=== PATIENT | female | born 1965 | race Caucasian/White ===

== ENCOUNTER 2016-05-14 22:24 | Emergency (ER) | payer MEDICAID ==
--- NOTE | ~2016-05-14 | ER ---
PATIENT'S NAME: YUNIOR BRAVO [facility] AGE: 50 Y [address] ROOM: [place] [address] LOCATION: ED ADMIT DATE: 05/14/2016 ER/Outpatient Report DISCHARGE DATE: 05/14/2016 FAMILY PHYSICIAN: Gabriel Eaton MD ATTENDING PHYSICIAN: Roberto Chavez Time Seen: 2238 hours. CHIEF COMPLAINT: Low back pain. HISTORY OF PRESENT ILLNESS: The patient is a 50-year-old female with history of insulin-dependent diabetes. She said she was moving some furniture over the weekend and now has developed some low back pain. The pain is worse with movement. She denies fever or chills. No urinary symptoms. The patient states that she checked her sugars earlier today which were normal for her. CURRENT MEDICATIONS: See her copied list. ALLERGIES: SEE COPIED LIST. MEDICAL HISTORY: Includes irritable bowel syndrome, insulin-dependent diabetes, chronic excessive weight, history of blood clots, acid reflux. SURGERIES: Include cholecystectomy, hysterectomy. SOCIAL HISTORY: She is . Nonsmoker, no alcohol. REVIEW OF SYSTEMS: GENERAL: Denies fevers or chills. HEAD/ENT: No recent headache, sore throat. RESPIRATORY: Denies cough, wheezing. CARDIOVASCULAR: Negative. GASTROINTESTINAL: Has had no vomiting, no nausea, no diarrhea. GENITOURINARY: No burning, frequency, urgency. MUSCULOSKELETAL: Includes bilateral low back pain. The pain is increased with movement. NEURO: Denies numbness or tingling to extremities. PATIENT'S NAME: YUNIOR BRAVO [facility] AGE: 50 Y [address] ROOM: [place] [address] LOCATION: [facility] ADMIT DATE: 05/14/2016 ER/Outpatient Report DISCHARGE DATE: 05/14/2016 FAMILY PHYSICIAN: Gabriel Eaton MD ATTENDING PHYSICIAN: Roberto Chavez OBJECTIVE FINDINGS: VITAL SIGNS: Temperature is 98.6, respiratory rate 22, pulse 94, blood pressure 158/69, O2 sats 99%. GENERAL APPEARANCE: White female. She is excessively overweight, but alert and oriented. HEAD/EENT: Sclerae were clear. Oral membranes were moist. LUNGS: Clear bilaterally. There was no tachypnea. HEART: Tones distant and regular. ABDOMEN: Obese, nontender. BACK AND EXTREMITIES: Some tenderness across to her low back. Her movements were fairly normal. LABORATORY DATA AND X-RAYS: Urine showed no significant signs of any infection. She had positive glucose. ASSESSMENT: 1. Low back pain, probable musculoskeletal in nature from increased activity. 2. Insulin-dependent diabetes. 3. Chronic obesity. PLAN: Recommend some use of ice or heat. Continue Tylenol. Advised to monitor her sugars at home. Follow up with Dr. Eaton if she does not improve. MARCELINO BRIGGS FOR MD JOVAN BAUTISTA/som /[id number] d: 05/15/162 t: 05/21/16 1212, OUTPATIENT REPORT
[2016-05-14 23:08] LABS: BILIRUBIN URINE NEGATIVE (NEGATIVE); BLOOD URINE NEGATIVE /UL (NEGATIVE); COLOR URINE YELLOW (YELLOW); GLUCOSE URINE 100 mg/dL (NEGATIVE); KETONE URINE 5 mg/dL (NEGATIVE); LEUKOCYTES URINE NEGATIVE /UL (NEGATIVE); NITRITE URINE NEGATIVE (NEGATIVE); PROTEIN URINE NEGATIVE (NEGATIVE); TURBIDITY URINE CLEAR (CLEAR); UROBILINOGEN URINE 4 mg/dL (NORMAL)
== END 2016-05-14 23:58 | disposition disaster alternative care site (69) ==
LOC: GMED 22:24
PROVIDERS: Physician Assistant Medical
DX: M54.5 Low back pain (principal); E11.9 Type 2 diabetes mellitus without complications; E66.9 Obesity, unspecified; K21.9 Gastro-esophageal reflux disease without esophagitis; Z90.710 Acquired absence of both cervix and uterus

== ENCOUNTER 2016-05-22 21:35 | Emergency (ER) | payer MEDICAID ==
--- NOTE | ~2016-05-22 | ER ---
PATIENT'S NAME: UYNIOR BRAVO [facility] AGE: 50 Y [address] ROOM: [place] [address] LOCATION: [facility] ADMIT DATE: 05/22/2016 ER/Outpatient Report DISCHARGE DATE: 05/22/2016 FAMILY PHYSICIAN: Gabriel Eaton MD ATTENDING PHYSICIAN: Tamara Crowe TIME OF ARRIVAL: 2133 hours. TIME OF EXAM: 2144 hours. CHIEF COMPLAINT: Abdominal pain and neck pain. HISTORY OF PRESENT ILLNESS: The patient states approximately 1 hour prior to arrival she tripped over something in her living room she is not quite sure what it was. She states she never actually fell, she just twisted and caught herself, she is having pain in the right upper quadrant, it kind of radiates up the whole side, she is having pain in the right-side of her neck, she states she sat down for awhile to see if the pain would calm down. She is nauseated, but has not vomited. Denies any numbness or tingling of her extremities. She has not taken anything at home for the discomfort. ALLERGIES: ALLERGIES ARE ON HER CHART AND REVIEWED BY ME. SHE HAS MULTIPLE ALLERGIES. CURRENT MEDICATIONS: Current medications are on her chart and reviewed by me. PAST MEDICAL HISTORY: Insulin-dependent diabetes, GERD, IBS, and history of blood clots. PAST SURGICAL HISTORY: Hysterectomy, cholecystectomy, and bowel tuck. SOCIAL HISTORY: She denies use of tobacco, drugs, or alcohol. REVIEW OF SYSTEMS: All negative other than those mentioned in the HPI. PHYSICAL EXAMINATION: VITAL SIGNS: She weighed 176.7 kg. Blood pressure is 170/106, pulse of 96, PATIENT'S NAME: YUNIOR BRAVO [facility] AGE: 50 Y [address] ROOM: [place], [place] [address] LOCATION: [facility] ADMIT DATE: 05/22/2016 ER/Outpatient Report DISCHARGE DATE: 05/22/2016 FAMILY PHYSICIAN: Gabriel Eaton MD ATTENDING PHYSICIAN: Tamara Crowe respirations 16, temp of 98.9, and O2 sat was 98% on room air. GENERAL: She is awake, alert, and oriented x4. SKIN: [place], warm, and dry. RESPIRATIONS: Even and nonlabored. Lung sounds are clear throughout. HEART: Regular rate and rhythm. ABDOMEN: Soft and nondistended. Bowel sounds are present. EXTREMITIES: She moves all extremities strongly and equally. NECK: No deformity of the neck is noted. EMERGENCY DEPARTMENT COURSE: X-ray was completed. No acute bony abnormality is seen. The patient was given acetaminophen 1000 mg p.o. Blood pressure did come down to 160/85, pulse of 92, and respirations 16. IMPRESSION: Strain of the abdomen muscles and neck. PLAN: Home, rest, ice or heat to the neck and abdominal area. Tylenol every 6 hours as needed for discomfort. If symptoms persist or worsen, she should follow up with Dr. Eaton. She verbalized understanding. NINI AYALA APRN FOR MD ÁNGEL MOLINA/som /[id number] d: 05/23/16 0425 t: 05/25/16 1815, OUTPATIENT REPORT
== END 2016-05-22 22:38 | disposition disaster alternative care site (69) ==
LOC: GACC 21:35
DX: S39.011A Strain of muscle, fascia and tendon of abdomen, initial encounter (principal); S16.1XXA Strain of muscle, fascia and tendon at neck level, initial encounter; E11.9 Type 2 diabetes mellitus without complications; K21.9 Gastro-esophageal reflux disease without esophagitis; Z90.49 Acquired absence of other specified parts of digestive tract; Z79.01 Long term (current) use of anticoagulants; Z79.899 Other long term (current) drug therapy; Z79.4 Long term (current) use of insulin; Z88.0 Allergy status to penicillin; Z88.5 Allergy status to narcotic agent; Z88.2 Allergy status to sulfonamides; Z88.1 Allergy status to other antibiotic agents; W22.8XXA Striking against or struck by other objects, initial encounter

== ENCOUNTER 2016-06-22 10:32 | Emergency (ER) | payer MEDICAID ==
--- NOTE | ~2016-06-22 | ENPV ---
Vascular Lower Extremities DVT Study Procedure Demographics Patient Name YUNIOR BRAVO Date of Study 06/22/2016 Patient Number [id number] Gender Female Date of 1965 Age 50 Visit Number [id number] Height Accession Number [id number] Weight Room Number BSA BMI Referring Delfin Archer MD Interpreting Brennon Avila MD Physician Physician Physician Ordering Physician Delfin Archer MD Finish Sander Loan Secretary Swapna Nehemias RDCS, RVT Conclusions Summary No evidence of deep vein thrombosis in the left lower extremity , but there is superficial thrombophlebitis in the great saphenous vein(s). Procedure Type of Study: Veins:Lower Extremities DVT Study, Lower Extremity Left. Indications for Study:Pain in Limb. Appropriate Use Criteria:9 Patient Status:STAT. Study Location:ER. Technical Quality:Poor visualization due to body habitus. Risk Factors - The patient's risk factor(s) include: atrial fibrillation, chronic lung disease, insulin-treated diabetes mellitus, treated dyslipidemia, obesity, lack of physical activity and treated arterial hypertension. - The patient has a former tobacco history. Velocities are measured in cm/s ; Diameters are measured in cm Right Lower Extremities DVT Study Measurements Right 2D and Doppler Measurements + + + + +------+------+ + !Location !Visualized!Compressibility!Thrombosis!Signal!Reflux!Reflux ! ! ! ! ! ! ! !(sec) ! + + + + +------+------+ + !Common !Yes !Yes !None !Phasic! ! ! !Femoral ! ! ! ! ! ! ! + + + + +------+------+ + Left Lower Extremities DVT Study Measurements Left 2D and Doppler Measurements + + + + +------+------+ + !Location !Visualized!Compressibility!Thrombosis!Signal!Reflux!Reflux ! ! ! ! ! ! ! !(sec) ! + + + + +------+------+ + !GSV Thigh !Yes !No !Chronic !Absent! ! ! + + + + +------+------+ + !Common !Yes !Yes !None !Phasic! ! ! !Femoral ! ! ! ! ! ! ! + + + + +------+------+ + !Prox !Yes !Yes !None !Phasic! ! ! !Femoral ! ! ! ! ! ! ! + + + + +------+------+ + !Mid Femoral!Yes !Yes !None !Phasic! ! ! + + + + +------+------+ + !Dist !Yes !Yes !None !Phasic! ! ! !Femoral ! ! ! ! ! ! ! + + + + +------+------+ + !Popliteal !Yes !Yes !None !Phasic! ! ! + + + + +------+------+ + !Gastroc !No !Yes ! ! ! ! ! + + + + +------+------+ + !PTV !No !Yes ! ! ! ! ! + + + + +------+------+ + !Peroneal !No !Yes ! ! ! ! ! + + + + +------+------+ + Impressions Left Impression no DVT seen. Thrombus in the GSV from prox to mid thigh Signature dtt: VIRIDIANA SPANN dtjonathon: 06/22/16 1155 Physician Self Edit
--- NOTE | ~2016-06-22 | ER ---
PATIENT'S NAME: YNUIOR BRAVO [facility] AGE: 50 Y [address] ROOM: [place] [address] LOCATION: ED ADMIT DATE: 06/22/2016 ER/Outpatient Report DISCHARGE DATE: 06/22/2016 FAMILY PHYSICIAN: Gabriel Eaton MD ATTENDING PHYSICIAN: Gianni Lenz CHIEF COMPLAINT: Left leg pain. HISTORY OF PRESENT ILLNESS: The patient presents with several weeks of left leg pain. It has been getting worse lately. She presented to her primary care physician, Dr. Eaton, for evaluation and he referred her here. The patient states that the pain is actually on the proximal medial thomas. She states that she has not been taking her water pill because she ran out of it and that has been causing some swelling. No recent injuries that she is aware of. No other acute changes. Tylenol does make the pain tolerable and allows her to sleep. PAST MEDICAL HISTORY: Documented on the record and reviewed by me. SOCIAL HISTORY: Documented on the record and reviewed by me. MEDICATIONS: Documented on the record and reviewed by me. ALLERGIES: DOCUMENTED ON THE RECORD AND REVIEWED BY ME. REVIEW OF SYSTEMS: All systems are reviewed and are negative except as noted in the HPI. PHYSICAL EXAMINATION: VITAL SIGNS: Blood pressure 152/86, pulse 78, respiratory rate is 18, temperature 97.4, and SpO2 is 95% on room air. Pain is 8/10. GENERAL: Age-appropriate female, in no obvious pain or distress, sitting comfortably on the exam chair. NEUROLOGIC: Awake and alert. GCS 15. No focal deficits. No asymmetry on exam. HEENT: Normocephalic, atraumatic. Eyes are PERRL. Oropharynx is clear. NECK: Supple. Trachea is midline. CHEST/HEART: Regular rate and rhythm. No murmurs. LUNGS: Clear to auscultation bilateral. No rhonchi, wheezes, or rales. Limited by body habitus. PATIENT'S NAME: YUNIOR BRAVO [facility] AGE: 50 Y [address] ROOM: [place] [address] LOCATION: ED ADMIT DATE: 06/22/2016 ER/Outpatient Report DISCHARGE DATE: 06/22/2016 FAMILY PHYSICIAN: Gabriel aEton MD ATTENDING PHYSICIAN: Gianni Lenz ABDOMEN: Soft, nontender, and nondistended. No obvious masses. Limited by body habitus. BACK: Nontender to palpation throughout. EXTREMITIES: Grossly unremarkable for body size, safe for the left lower extremity. There is 1+ edema throughout the leg. Findings consistent with ecchymosis and possible thrombophlebitis of the medial proximal tibia. No pain at the joint or joint line though markedly limited by body habitus. No significant pain near the knee joint with flexion of the knee. SKIN: Warm, dry, and intact. LABORATORY DATA AND X-RAYS: Plain films of the left knee are unremarkable per my read. Venous duplex ultrasound reveals some occlusion of the saphenous vein. IMPRESSION: 1. Left proximal tibia pain. 2. Saphenous vein occlusion. ED COURSE: The patient was seen and evaluated. Focal findings including thrombophlebitis, arthritis, and DVT considered. No true DVT. The patient is already on Xarelto. We will not make any alterations to that today. The patient declined any stronger pain medications stating social need for mental sharpness. Her pain is otherwise acceptably controlled. She will be appropriate for discharge at this time. I did contact Dr. Eaton, her primary care physician and I made him aware of the current situation. The patient is amenable to follow up. She will hopefully begin to feel better over time. No evidence of PE at this time. She will be discharged in good condition. Her presentation is not consistent with spinal issue as there is no true radiculopathy, but some more referred pain to the more proximal aspects. Also her pain would correlate with her areas of occlusion. All questions were answered, and the patient was discharged in good condition. MD RANDI SALINAS/tail /[id number] d: 06/22/166 t: 07/11/16 0851, OUTPATIENT REPORT
== END 2016-06-22 12:48 | disposition disaster alternative care site (69) ==
LOC: GMED 10:32
DX: I82.812 Embolism and thrombosis of superficial veins of left lower extremity (principal)

== ENCOUNTER 2016-08-01 23:06 | Emergency (ER) | payer MEDICAID ==
--- NOTE | ~2016-08-01 | ER ---
PATIENT'S NAME: YUNIOR BRAVO [facility] AGE: 50 Y [address] ROOM: [place] [address] LOCATION: [facility] ADMIT DATE: 08/01/2016 ER/Outpatient Report DISCHARGE DATE: 08/01/2016 FAMILY PHYSICIAN: Physician, Unknown ATTENDING PHYSICIAN: Gianni Lenz Time of Arrival: 2309 hours. Time of Evaluation: 2320 hours. CHIEF COMPLAINT: Left leg pain. HISTORY OF PRESENT ILLNESS: The patient states about 1 o'clock today, she tripped at the dentist's office and caught herself, felt pain in her left knee and left ankle since. She has not taken anything at home for the pain. She has not been putting ice on it. She does have a history of DVTs. 2 weeks ago the ultrasound was positive for DVT of the left leg; however, she is on Xarelto. MEDICATIONS: On her chart and reviewed by me. ALLERGIES: ON HER CHART AND REVIEWED BY ME. PAST MEDICAL HISTORY: On her chart and reviewed by me. PAST SURGICAL HISTORY: On her chart and reviewed by me. REVIEW OF SYSTEMS: All negative other than those mentioned in the HPI. PHYSICAL EXAMINATION: VITAL SIGNS: She weighs 174 kg, blood pressure is 156/77, pulse of 93, respirations 16, temperature of 98, O2 saturations 97% on room air. GENERAL: She is awake, alert, and oriented x4. SKIN: [place], warm, and dry. RESPIRATIONS: Even and nonlabored. Lung sounds are clear throughout. HEART: Regular rate and rhythm. MUSCULOSKELETAL: She is tender in the medial aspect of her knee. Tender in the medial and lateral aspect of the ankle. She has strong pedal pulses. Good sensation to her toes. The patient is quite obese. LABORATORY DATA AND X-RAYS: PATIENT'S NAME: YUNIOR BRAVO [facility] AGE: 50 Y [address] ROOM: [place] [address] LOCATION: [facility] ADMIT DATE: 08/01/2016 ER/Outpatient Report DISCHARGE DATE: 08/01/2016 FAMILY PHYSICIAN: Physician, Unknown ATTENDING PHYSICIAN: Gianni Lenz X-rays were completed. No acute abnormality is seen. The patient does have an abnormality of the fifth metatarsal, but it is seen on previous films. IMPRESSION: Sprained ankle, strain to the left knee. PLAN: Home. Rest. Ice to the knee or ankle. Continue current medications and follow up with her primary provider in the next 2 to 3 days. She verbalized understanding. NINI AYALA APRN FOR MD ÁNGEL SALINAS/som /[id number] d: 08/02/16 0134 t: 08/20/16 0650, OUTPATIENT REPORT
== END 2016-08-01 23:45 | disposition disaster alternative care site (69) ==
LOC: GMED 23:06
DX: S93.402A Sprain of unspecified ligament of left ankle, initial encounter (principal); S86.812A Strain of other muscle(s) and tendon(s) at lower leg level, left leg, initial encounter; E66.9 Obesity, unspecified; E11.40 Type 2 diabetes mellitus with diabetic neuropathy, unspecified; Z98.890 Other specified postprocedural states; F41.9 Anxiety disorder, unspecified; G43.909 Migraine, unspecified, not intractable, without status migrainosus; F32.9 Major depressive disorder, single episode, unspecified; K58.9 Irritable bowel syndrome, unspecified; Z86.718 Personal history of other venous thrombosis and embolism; Z79.01 Long term (current) use of anticoagulants; Z88.0 Allergy status to penicillin; Z88.5 Allergy status to narcotic agent; Z88.8 Allergy status to other drugs, medicaments and biological substances; Z88.2 Allergy status to sulfonamides; Z79.899 Other long term (current) drug therapy; Z79.4 Long term (current) use of insulin; W18.40XA Slipping, tripping and stumbling without falling, unspecified, initial encounter; Y92.531 Health care provider office as the place of occurrence of the external cause

== ENCOUNTER 2016-08-11 09:20 | Emergency (ER) | payer MEDICAID ==
--- NOTE | ~2016-08-11 | ER ---
PATIENT'S NAME: YUNIOR BRAVO [facility] AGE: 50 Y [address] ROOM: [place] [address] LOCATION: [facility] ADMIT DATE: 08/11/2016 ER/Outpatient Report DISCHARGE DATE: 08/11/2016 FAMILY PHYSICIAN: Gabriel Eaton MD ATTENDING PHYSICIAN: Gildardo Vanegas Time of Arrival: 0920 hours. Time of Evaluation: 0923 hours. CHIEF COMPLAINT: Leg pain, back pain, chest pain. HISTORY OF PRESENT ILLNESS: The patient is a 50-year-old female who presents to the emergency department today with the chief complaint of left leg pain, left back pain, and chest pain. She reports this has been going on for several weeks. She reports she was recently diagnosed with a blood clot in her leg. She does have a history of PE. She has been on Xarelto for 3 years now. She reports she did have some shortness of breath. She denies any fevers or chills. Nonproductive cough. Her pain is primarily in the left side of her back. She did have a slight episode of chest pain. It is sharp in nature. No nausea or vomiting. No diarrhea or constipation. No headache. PAST MEDICAL HISTORY: Neuropathy, depression, anxiety, migraine, scoliosis, nlg-aodzzva-[id number] diabetes, obesity, IBS, gastroesophageal reflux disease, left leg DVT. PAST SURGICAL HISTORY: Bladder, cholecystectomy. SOCIAL HISTORY: The patient denies any tobacco, alcohol, or illicit drug use. ALLERGIES: TALWIN, CODEINE, PENICILLIN, DARVOCET, DEMEROL, MORPHINE, SULFA. MEDICATIONS: Please see list. PRIMARY CARE DOCTOR: Gabriel Eaton MD. REVIEW OF SYSTEMS: All systems are reviewed by myself and negative with the exception of those discussed in HPI and past medical history. PATIENT'S NAME: YUNIOR BRAVO [facility] AGE: 50 Y [address] ROOM: [place] [address] LOCATION: [facility] ADMIT DATE: 08/11/2016 ER/Outpatient Report DISCHARGE DATE: 08/11/2016 FAMILY PHYSICIAN: Gabriel Eaton MD ATTENDING PHYSICIAN: Gildardo Vanegas PHYSICAL EXAMINATION: VITAL SIGNS: Weight 175 kg, blood pressure 159/80, pulse 78, respiratory rate 16, temperature 98.3, oxygen saturation 93% on room air. GENERAL: The patient is a 50-year-old female, appears stated age, in no acute distress. Obese. HEENT: Normocephalic, atraumatic. Pupils are equal, round, and reactive to light. Oropharynx is clear. NECK: Supple. There is no nuchal rigidity. CARDIOVASCULAR: Regular rate and rhythm. No murmurs, rubs, or gallops. LUNGS: Clear to auscultation bilaterally. No wheezes, rales, or rhonchi. ABDOMEN: Soft, nontender, and nondistended. No rebound, rigidity, or guarding. MUSCULOSKELETAL: The patient moves all 4 extremities. Ambulates with steady gait. SKIN: The patient has a 1+ pretibial edema in bilateral lower extremities. 2/4 pulses, DP and PT. LABORATORY DATA AND X-RAYS: Labs and x-rays are obtained. EKG is obtained, is interpreted by myself at 0845 hours shows sinus rhythm with a rate 82, normal axis, no ST elevation, ST depression, T-wave inversions. Repeat EKG is interpreted by myself at 0955 hours shows sinus rhythm with a rate of 77, left axis deviation, normal interval. No ST elevation, ST depression, T-wave inversion. CBC is unremarkable. PTT is 39, PT is 12, INR is 1.14. CMP is unremarkable. LFTs are normal. Magnesium is normal. CK is normal. CK-MB is normal. Troponin is less than 0.04. ProBNP is normal. A CT scan of the chest was obtained. I have discussed results with the radiologist. There is no evidence of central PE or main vessel PE. There does appear to be a right upper lobe area with small AVM noted with recommendation for Pulmonary consult. Venous Doppler of the lower extremity is also obtained. There is no evidence of DVT noted. IMPRESSION: 1. Left leg pain. 2. Back pain. 3. Chest pain, atypical. 4. Initial visit. EMERGENCY DEPARTMENT COURSE: The patient was brought back to the examination room. Seen and evaluated by myself. IV was established. Laboratory analysis and imaging are obtained as described above. The results of the testing are obtained. I have discussed results with the patient and her at the bedside. I have recommended 2- hour cardiac enzyme; however, the patient does report that she needs to go right now. I do report that I have discussed with her the risks and benefits PATIENT'S NAME: YUNIOR BRAVO [facility] AGE: 50 Y [address] ROOM: [place], [place] [address] LOCATION: [facility] ADMIT DATE: 08/11/2016 ER/Outpatient Report DISCHARGE DATE: 08/11/2016 FAMILY PHYSICIAN: Gabriel Eaton MD ATTENDING PHYSICIAN: Gildardo Vanegas of leaving without 2-hour cardiac enzymes, including not ruling out a heart attack. She still does wish to leave at this time. I have contacted Dr. Eaton, the patient's primary care doctor and discussed with him the AVM of the right upper lobe as well as the results of traction. I have discussed return to care instructions including worsening symptoms, worsening chest pain, or any other concerns, to return to the emergency department as soon as possible. The patient is agreeable without further questions at this time. DISPOSITION: The patient is discharged home in good condition. DO ALLI CHANDLERR/modl /[id number] d: 08/11/161999 t: 08/22/1642, OUTPATIENT REPORT
--- NOTE | ~2016-08-11 | ENPV ---
Vascular Lower Extremities DVT Study Procedure Demographics Patient Name YUNIOR BRAVO Date of Study 08/11/2016 Patient Number [id number] Gender Female Date of 1965 Age 50 Visit Number [id number] Height Accession Number [id number] Weight Room Number BSA BMI Referring Angelito Quinones MD Interpreting Brennon Avila MD Physician Physician Physician Ordering Romina Ewing MD Tipping Machine Operator Automatic Physician Investment Director Ceferino [facility], [facility] Conclusions Summary No evidence of deep vein thrombosis or superficial thrombophlebitis in the left lower extremity. Procedure Type of Study: Veins:Lower Extremities DVT Study, Lower Extremity Left. Indications for Study:Pain in Limb. Appropriate Use Criteria:9 Patient Status:STAT. Study Location:ER. Technical Quality:Adequate visualization. Velocities are measured in cm/s ; Diameters are measured in cm Left Lower Extremities DVT Study Measurements Left 2D and Doppler Measurements + + + + +------+------+ + !Location !Visualized!Compressibility!Thrombosis!Signal!Reflux!Reflux ! ! ! ! ! ! ! !(sec) ! + + + + +------+------+ + !GSV Thigh !Yes !Yes !None !Phasic! ! ! + + + + +------+------+ + !Common !Yes !Yes !None !Phasic! ! ! !Femoral ! ! ! ! ! ! ! + + + + +------+------+ + !Prox !Yes !Yes !None !Phasic! ! ! !Femoral ! ! ! ! ! ! ! + + + + +------+------+ + !Mid Femoral!Yes !Yes !None !Phasic! ! ! + + + + +------+------+ + !Dist !Yes !Yes !None !Phasic! ! ! !Femoral ! ! ! ! ! ! ! + + + + +------+------+ + !Popliteal !Yes !Yes !None !Phasic! ! ! + + + + +------+------+ + !Gastroc !Yes !Yes !None !Phasic! ! ! + + + + +------+------+ + !PTV !Yes !Yes !None ! ! ! ! + + + + +------+------+ + !Peroneal !Yes !Yes !None ! ! ! ! + + + + +------+------+ + Signature dtt: VIRIDIANA SPANN dtd: 08/11/16 1049 Physician Self Edit
[2016-08-11 09:44] LABS: BASOPHIL # 0.1 K/uL (0.0-0.2); BASOPHIL % 0.6 %; EOSINOPHIL # 0.1 K/uL (0.0-0.5); EOSINOPHIL % 0.8 %; HEMATOCRIT 41.6 % (33.0-46.0); HEMOGLOBIN 13.7 g/dL (10.0-15.0); IMMATURE GRANULOCYTE % 0.2 %; LYMPHOCYTE # 1.7 K/uL (0.8-4.0); LYMPHOCYTE % 20.2 %; MCH 30.1 pg (27.0-34.0); MCHC 32.9 gm/dL (32.0-36.5); MCV 91.4 fl (83.0-98.0); MONOCYTE # 0.6 K/uL (0.0-1.0); MONOCYTE % 7.5 %; MPV 10.5 fl (9.4-12.4); NEUTROPHIL # (ANC) 5.8 K/uL (1.8-7.8); NEUTROPHIL % 70.7 %; NRBC % 0 /100WBC (0-0.00); PLATELET COUNT 267 K/uL (150-450); RBC 4.55 M/uL (3.50-5.50); RDW-CV 12.9 % (11.9-14.6); WBC 8.3 K/uL (4.0-11.0)
[2016-08-11 09:54] LABS: INR - (THERAPEUTIC) 1.14 (0.92-1.07); PTT 39 SECONDS (25-32)
[2016-08-11 10:04] LABS: ALK PHOS 81 IU/L (33-138); ALT 18 IU/L (12-78); ANION GAP 7.9 (10.0-19.0); AST 13 IU/L (10-40); BLOOD UREA NITROGEN 11 mg/dL (6-24); CALCIUM 8.8 mg/dL (8.5-10.5); CHLORIDE 104 mMol/L (96-110); CO2 33 mMol/L (22-32); CPK 61 IU/L (21-215); CREATININE 0.8 mg/dL (0.5-1.1); ESTIMATED GFR (MDRD EQUATION) > 60; MAGNESIUM 1.9 mg/dL (1.8-2.6); POTASSIUM 3.9 mMol/L (3.7-5.1); SODIUM 141 mMol/L (135-145); TOTAL BILIRUBIN 0.4 mg/dL (0.0-1.5); TOTAL PROTEIN 6.6 g/dL (6.0-8.4)
== END 2016-08-11 11:54 | disposition disaster alternative care site (69) ==
LOC: GMED 09:20
PROVIDERS: Emergency Medicine
DX: M79.605 Pain in left leg (principal); R07.89 Other chest pain; M54.9 Dorsalgia, unspecified; E11.40 Type 2 diabetes mellitus with diabetic neuropathy, unspecified; K21.9 Gastro-esophageal reflux disease without esophagitis; F41.9 Anxiety disorder, unspecified; F32.9 Major depressive disorder, single episode, unspecified; E66.9 Obesity, unspecified; Z88.0 Allergy status to penicillin; Z88.5 Allergy status to narcotic agent; Z88.2 Allergy status to sulfonamides; Z88.8 Allergy status to other drugs, medicaments and biological substances; Z90.49 Acquired absence of other specified parts of digestive tract; Z79.899 Other long term (current) drug therapy
CPT/HCPCS: Q9967

== ENCOUNTER → 2016-08-11 | Outpatient (CLI) | payer MEDICAID | END | disposition disaster alternative care site (69) | LOC: GAMB 08:51 | DX: F41.9 Anxiety disorder, unspecified (principal); E11.40 Type 2 diabetes mellitus with diabetic neuropathy, unspecified; G89.29 Other chronic pain; M25.512 Pain in left shoulder; I82.409 Acute embolism and thrombosis of unspecified deep veins of unspecified lower extremity; R06.02 Shortness of breath; R07.9 Chest pain, unspecified; R06.00 Dyspnea, unspecified; Z86.711 Personal history of pulmonary embolism; Z79.4 Long term (current) use of insulin; Z79.899 Other long term (current) drug therapy; Z88.0 Allergy status to penicillin; Z88.2 Allergy status to sulfonamides; Z88.5 Allergy status to narcotic agent; Z88.8 Allergy status to other drugs, medicaments and biological substances ==

== ENCOUNTER 2016-10-29 12:43 | Emergency (ER) | payer MEDICAID ==
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
== END 2016-10-29 14:59 | disposition disaster alternative care site (69) ==
LOC: GACC 12:43
DX: M25.512 Pain in left shoulder (principal); M25.522 Pain in left elbow; Z79.4 Long term (current) use of insulin; Z79.899 Other long term (current) drug therapy; W19.XXXA Unspecified fall, initial encounter; Y92.009 Unspecified place in unspecified non-institutional (private) residence as the place of occurrence of the external cause